=== PATIENT | male | born 1995 | race Two or more races ===

== ENCOUNTER 2018-10-08 05:05 | Emergency (ER) | payer MEDICAID, OTHER ==
[~2018-10-08] VITALS: Ht 172.7 cm; Wt 122.7 kg
[2018-10-08 05:13] VITALS: BP 126/68
== END 2018-10-08 05:22 ==
LOC: ER 05:06
DX: Z04.1 Encounter for examination and observation following transport accident (principal); F10.129 Alcohol abuse with intoxication, unspecified; Y90.9 Presence of alcohol in blood, level not specified; V49.40XA Driver injured in collision with unspecified motor vehicles in traffic accident, initial encounter; Y93.89 Activity, other specified; Y92.488 Other paved roadways as the place of occurrence of the external cause; Y99.8 Other external cause status
CPT/HCPCS: 99283